=== PATIENT | female | born 1975 | race Caucasian/White ===

== ENCOUNTER 2023-11-24 20:25 | Outpatient (REF) | payer OTHER, SELFPAY ==
[2023-11-27 14:11] LABS: Age Gdln ACOG Testing Note (.); HPV Aptima Negative (Negative); IGP, Aptima HPV, rfx 16/18,45 Note (.)
== END 2023-11-24 20:26 | disposition home or self-care (01) ==
LOC: LAB 20:25
PROVIDERS: Visit Provider Obstetrics & Gynecology
DX: Z01.419 Encounter for gynecological examination (general) (routine) without abnormal findings (principal)
CPT/HCPCS: 87624; G0145

== ENCOUNTER 2023-12-09 15:21 | Outpatient (OUT) | payer OTHER, SELFPAY ==
--- NOTE | 2023-12-09 15:23 | MM_ITS ---
Patient Name: BAL HUMMEL MR#: [id number] : 1975 Exam Date: 12/09/2023 Ordering Doctor: DR Santo Soler . RADIOLOGY REPORT PROCEDURE: MM TOMOSYNTHESIS SCREENING BI COMPARISON: MG MAMM SCREEN TALAT W CAD, 03/15/2020. MG MAMM TALAT DIAG W CAD, 08/30/2016. INDICATIONS: screening Calculator Name NCI Breast Cancer Risk Assessment Tool 5 Year Breast Cancer Risk 0.60% Lifetime Breast Cancer Risk 7.00% Personal Breast Cancer No Personal Ovarian Cancer No Treatments None Family Cancers Mother with colon cancer at age 66; Father with prostate cancer at age 69. LOCATION: [facility] BREAST COMPOSITION: Extremely dense, which lowers the sensitivity of mammography. FINDINGS: DIAGNOSTIC CATEGORY 2--BENIGN FINDING. NO CHANGE FROM COMPARISON. Scattered benign-appearing nodules are present. Scattered benign-appearing calcifications are present. Scattered benign-appearing lymph nodes are present. RIGHT BREAST: No significant suspicious finding. LEFT BREAST: No significant suspicious finding. RECOMMENDATIONS: ROUTINE MAMMOGRAM AND CLINICAL EVALUATION IN 12 MONTHS. PLEASE NOTE: A NORMAL MAMMOGRAM DOES NOT EXCLUDE THE POSSIBILITY OF BREAST CANCER. A CLINICALLY SUSPICIOUS PALPABLE LUMP SHOULD BE BIOPSIED. Dictated by: Handy Winkler MD on 12/10/2023 at 12:45 Approved by: Handy Winkler MD on 12/10/2023 at 12:46
--- OUTSIDE RECORDS SUMMARY | 2023-12-09 15:24 | XMS_ITS | CCD ---
Author Name Unknown Address [address] [place] [address] Organization [facility] Care Team Providers Care Compensator Name Role Phone CARLOS ., DR MEZA Admitting Unavailabl e CARLOS ., DR MEZA Attending Unavaildavid GALVAN, DR KAT Hazel Primary Care Unavailable KARASIFarzad ., DR MEZA Consulting Unavailabl e NORTH, DR WILBERTO Starr Consulting Unavailable KARSAGAR ., DR MEZA Admitting Unavailabl e CARLOS ., DR MEZA Attending Unavaildavid GALVAN, DR KAT Hazel Primary Care Unavailable KARASIK ., DR MEZA Consulting Unavailabl e NGA AGUILAR Attending Unavailable Allergies Allergy Classification Reported Allergen(s) Allergy Type Date of Onset Reaction(s) Facility (1 source) Acetaminophen / HYDROcodone Drug Allergy 09-05-2021 [facility] (1 source) Acetaminophen / oxyCODONE Drug Allergy 09-05-2021 [facility] (1 source) Amoxicillin Drug Allergy 06-29-2021 [facility] Problems Active Problems Problem Classification Problem Date Documented Date Episodic/Chronic Immunizations and screening for infectious disease (1 source) Encounter for screening for human papillomavirus (HPV); Translations: [ENC SCREENING HUMAN PAPILLOMAVIRUS] Onset: 11-14-2022 Episodic Other screening for suspected conditions (not mental disorders or infectious disease) (4 sources) Encounter for screening for malignant neoplasm of cervix; Translations: [ENC SCREENING MALIG NEOPLASM CERV] Onset: 11-08-2022 Episodic Past or Other Problems Problem Classification Problem Date Documented Da te Episodic/Chronic Abdominal pain (4 sources) Right lower quadrant pain; Translations: [RIGHT LOWER QUADRANT PAIN] Onset: 07-29-2022 Episodic Ovarian cyst (1 source) Unspecified ovarian cyst, right side; Translations: [UNSPECIFIED OVARIAN CYST RIGHT SIDE] Onset: 07-31-2022 Episodic Residual codes; unclassified (1 source) Acquired absence of both cervix and uterus; Translations: [ACQUIRED ABSENCE BOTH CERVIX AND UTERUS] Onset: 07-31-2022 Episodic Results Test Name Value Interpretation Reference Range Facil ity PAP ACOG PANEL 2: 30 to 65on 11-15-2022 . . Normal [facility] Comment on above: Result Comment: Perf ormed at: [facility] Performed By: #### [id number] #### [facility] [address] [address] [address] Kev Weems Age Gdln ACOG Testing 30-65 Normal [facility] Comment on above: Performed By: #### [id number] #### [facility] [address] [address] [address] Kev Weems DIAGNOSIS: Comment Normal [facility] Comment on above: Result Comment: NEGA TIVE FOR INTRAEPITHELIAL LESION OR MALIGNANCY. Performed at: [facility] Performed By: #### [id number] #### [facility] [address] [address] [address] Kev Weems HPV Aptima Negative Normal Negative [facility] Comment on above: Result Comment: This nucleic acid amplification test detects fourteen high-risk HPV types (16,18,31,33,35,39,45,51,52,56,58,59,66,68) without differentiation. Performed at: =G Performed By: #### [id number] #### [facility] [address] [address] [address] Kev Weems HPV Genotype Reflex Comment Normal [facility] Comment on above: Result Comment: Crit eria not met, HPV Genotype not performed. Performed at: [facility] Performed By: #### [id number] #### [facility] [address] [address] [address] Kev Weems Methodology: Comment Normal [facility] Comment on above: Result Comment: This liquid based ThinPrep(R) pap test was screened with the use of an image guided system. Performed at: [facility] Performed By: #### [id number] #### [facility] [address] [place] [address] Dr. Kev Weems Note: Comment Normal [facility] Comment on above: Result Comment: The Pap smear is a screening test designed to aid in the detection of premalignant and malignant conditions of the uterine cervix. It is not a diagnostic procedure and should not be used as the sole means of detecting cervical cancer. Both false-positive and false-negative reports do occur. . Performed at: [facility] Performed By: #### [id number] #### [facility] [address] [place] [address] Dr. Kev Weems Performed by: Comment Normal [facility] Comment on above: Result Comment: John Rae, Cook Roast (ASCP) Performed at: [facility] Performed By: #### [id number] #### [facility] [address] [place] [address] Dr. Kev Weems Specimen adequacy: Comment [facility] Comment on above: Result Comment: Sati sfactory for evaluation. No endocervical component is identified. Performed at: [facility] Performed By: #### [id number] #### [facility] [address] [place] [address] Dr. Kev Weems US PELVIS AND TRANSVAGon US PELVIS AND TRANSVAG EXAMINATION: US PELVIS AND TRANSVAG HISTORY: Right lower quadrant pain COMPARISON: Ultrasound pelvis 06/29/2021 TECHNIQUE: Transabdominal and transvaginal sonographic examination. FINDINGS: UTERUS: Hysterectomy. RIGHT OVARY: Contains a complex 2.0 cm cyst. Duplex Doppler demonstrates normal waveform and flow; resistive index 0.4. Ovary size: 2.9 x 2.3 x 2.1 cm LEFT OVARY: Normal size and appearance. Duplex Doppler demonstrates normal waveform and flow; resistive index 0.4. Ovary size: 1.8 x 1.7 1.0 cm CUL-DE-SAC: Unremarkable. No significant free fluid. BLADDER: Unremarkable. OTHER: None. IMPRESSION: 1. Complex 2.0 cm right ovarian cyst. Follow-up ultrasound evaluation in 6 weeks is recommended to document regression. 2. Prior hysterectomy. No acute findings. Electronically authenticated by: WILBERTO KAT Date: 2022-07-30 07:08 Normal [facility] Encounters Encounter Date Encounter Type Care Provider Facility Start: 11-24-2023 End: 11-24-2023 ambulatory NGA AGUILAR Not Available Start: 11-08-2022 End: 11-08-[address] SUSANA GONZALEZ . Facility[facility] Start: 07-29-2022 End: 07-30-[address] SUSANA GONZALEZ . Facility[facility] Payers Date Payer Category Payer Unknown [id number] 1975 Unknown [id number] [id number] [id number] 1975 Unknown [id number] 2.16.84 [id number] 1975 Unknown [id number] [id number] [id number] 1957 Unknown [id number] Summary Purpose Family History No Family History Records FoundNo Family History Records Found Advance Directives No Advanced Directives Records FoundNo Advanced Directives Records Found Additional Source Comments INFORMATION SOURCE (unrecogn ized section and content) DATE CREATED AUTHOR 01/17/2023 [facility] DATE CREATED AUTHOR AUTHOR'S ORGANIZ ATMICHAEL 11/25/2023 [facility] FOR RECORDS PERTAINING TO PATIENTS WHO ARE OR HAVE BEEN ENROLLED IN A CHEMICAL DEPENDENCY/SUBSTANCEABUSE PROGRAM, SOME INFORMATION MAY BE OMITTED. This clinical summary was aggregated from multiple sources. Caution should be exercised in using it in the provision of clinical care. This summary normalizes information from multiple sources, and as a consequence, information in this document may materially change the coding, format and clinical context of patient data. In addition, data may be omitted in some cases. CLINICAL DECISIONS SHOULD BE BASED ON THE PRIMARY CLINICAL RECORDS. [employer] provides no warranty or guarantee of the accuracy or completeness of information in this document.
== END 2023-12-09 15:22 | disposition home or self-care (01) ==
LOC: MAMMO 15:21
PROVIDERS: Visit Provider Obstetrics & Gynecology
DX: Z12.31 Encounter for screening mammogram for malignant neoplasm of breast (principal); Z80.0 Family history of malignant neoplasm of digestive organs; Z80.42 Family history of malignant neoplasm of prostate
CPT/HCPCS: 77063; 77067

== ENCOUNTER 2024-12-01 19:08 | Outpatient (REF) | payer OTHER, SELFPAY ==
--- OUTSIDE RECORDS SUMMARY | 2024-12-01 19:13 | XMS_ITS | CCD ---
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 Name Role Phone CARLOS ., DR MEZA Admitting Unavailabl e KARASIK ., DR MEZA Attending Unavailabl e GALVAN, DR KAT Hazel Primary Care Unavailable KARASIK ., DR MEZA Consulting Unavailabl e NORTH, DR WILBERTO Starr Consulting Unavailable KARASIK ., DR MEZA Admitting Unavailabl e KARASIK ., DR MEZA Attending Unavailabl e COLE, DR KAT Hazel Primary Care Unavailable KARASIK ., DR MEZA Consulting UnavailNGA Finch Attending Unavailable Crow Blackwell MD Primary Care Provider CROW BLACKWELL Attending Unavailable CROW BLACKWELL Referring Unavailable CROW BLACKWELL Primary Care Unavailable CROW BLACKWELL Attending Unavailable CROW BLACKWELL Referring Unavailable CROW BLACKWELL Primary Care Unavailable CROW BLACKWELL Referring Unavailable CROW BLACKWELL Primary Care Unavailable KI AVILES Attending Unavailable CROW BLACKWELL Referring Unavailable CROW BLACKWELL Primary Care Unavailable CROW BLACKWELL Referring Unavailable CROW BLACKWELL Primary Care Unavailable Allergies Allergy Classification Reported Allergen(s) Allergy Type Date of Onset Reaction(s) Facility (1 source) Acetaminophen / HYDROcodone Drug Allergy 09-05-2021 [facility] (1 source) Acetaminophen / oxyCODONE Drug Allergy 09-05-2021 [facility] (3 sources) Amoxicillin; Translations: [AMOXICILLIN] Drug Allergy 12-21-2018 [facility] (4 sources) Amoxicillin Drug Allergy 12-21-2018 [facility] (5 sources) Penicillin G; Translations: [PENICILLIN G] Drug Allergy 11-20-2023 [facility] Medications Current Medications Medication Drug Class(es) Dates Sig (Normalized) Sig (Original) acetaminophen 500 mg oral tablet (4 sources) take 2 tablets by mouth every six hours as needed for pain acetaminophen (TYLENOL) 500 mg tablet Take 2 tablets (1,000 mg total) by mouth every 6 (six) hours as needed for pain. Active azithromycin 250 mg oral tablet (1 source) Macrolide Antimicrobial Start: 08-30-2024 End: 09-03-2024 azithromycin (ZITHROMAX) 250 mg tablet Take 2 tablets the first day, then 1 tablet daily for 4 days. 6 tablet 08/30/2024 09/03/2024 Active estrogens, conjugated (correction) 0.625 mg oral tablet (4 sources) Estrogen Start: 12-08-2022 take 1 tablet by mouth in the morning PREMARIN 0.625 mg tablet Take 1 tablet (0.625 mg total) by mouth in the morning. 12/08/2022 Active ibuprofen 200 mg oral tablet (4 sources) Nonsteroidal Anti-inflammatory Drug take 4 tablets by mouth every six hours as needed for pain ibuprofen (ADVIL,MOTRIN) 200 mg tablet Take 4 tablets (800 mg total) by mouth every 6 (six) hours as needed for pain. Active LORazepam 1 mg oral tablet (5 sources) Benzodiazepine Start: 03-15-2024 End: 11-29-2024 take 1 tablet by mouth twice daily as needed for anxiety LORazepam (ATIVAN) 1 mg tablet Indications: Anxiety Take 1 tablet (1 mg total) by mouth 2 (two) times a day as needed for anxiety. 6 tablet 11/29/2024 Active ondansetron 4 mg disintegrating oral tablet (3 sources) Serotonin-3 Receptor Antagonist Start: 11-29-2024 take 1 tablet by mouth every eight hours as needed for nausea and vomiting ondansetron ODT (ZOFRAN ODT) 4 mg disintegrating tablet Dissolve 1 tablet (4 mg total) on tongue every 8 (eight) hours as needed for nausea or vomiting. 10 tablet 11/29/2024 Active Start: 03-15-2024 End: 11-04-2024 ondansetron ODT (ZOFRAN ODT) 4 mg disintegrating tablet Indications: History of motion sickness Dissolve 1 tablet (4 mg total) on tongue every 8 (eight) hours as needed for nausea or vomiting. 10 tablet 03/15/2024 11/04/2024 Discontinued 72 hr scopolamine 0.0139 mg/hr transdermal system (3 sources) Anticholinergic Start: 11-29-2024 apply 1 dose transdermal route once daily scopolamine (TRANSDERM-SCOP) 1 mg/[address] 1 patch on the skin every third day. 4 patch 1 11/29/2024 Active Start: 03-15-2024 End: 11-04-2024 apply 1 dose transdermal route once daily scopolamine (TRANSDERM-SCOP) 1 mg/3 days Indications: History of motion sickness Place 1 patch on the skin every third day. 4 patch 03/15/2024 11/04/2024 Discontinued Problems Active Problems Problem Classification Problem Date Documented Date Episodic/Chronic Anxiety disorders (1 source) Anxiety; Translations: [Anxiety disorder, unspecified] 11-29-2024 Chronic Immunizations and screening for infectious disease (1 source) Encounter for screening for human papillomavirus (HPV); Translations: [ENC SCREENING HUMAN PAPILLOMAVIRUS] Onset: 11-14-2022 Episodic Other nervous system disorders (2 sources) Other chronic pain; Translations: [Other chronic pain] Onset: 11-04-2024 Chronic Other screening for suspected conditions (not mental disorders or infectious disease) (4 sources) Encounter for screening for malignant neoplasm of cervix; Translations: [ENC SCREENING MALIG NEOPLASM CERV] Onset: 11-08-2022 Episodic Spondylosis; intervertebral disc disorders; other back problems (15 sources) Cervical spondylosis without myelopathy; Translations: [Spondylosis without myelopathy or radiculopathy, cervical region] Onset: 12-21-2018 12-15-2019 Chronic Spondylosis; intervertebral disc disorders; other back problems (8 sources) Chronic low back pain; Translations: [Lumbago with sciatica, right side] Onset: 08-06-2024 11-04-2024 Episodic Unclassified (1 source) discuss anxiety and motion sickness meds Onset: 03-15-2024 Past or Other Problems Problem Classification Problem Date Documented Date Episodic/Chronic Abdominal pain (4 sources) Right lower quadrant pain; Translations: [RIGHT LOWER QUADRANT PAIN] Onset: 07-29-2022 Episodic Mood disorders (4 sources) Mood disorders Onset: 06-05-2021 06-05-2021 Other female genital disorders (4 sources) Vaginal odor; Translations: [Other specified noninflammatory disorders of vagina] Onset: 11-08-2020 Resolved: 10-16-2023 10-16-2023 Episodic Ovarian cyst (1 source) Unspecified ovarian cyst, right side; Translations: [UNSPECIFIED OVARIAN CYST RIGHT SIDE] Onset: 07-31-2022 Episodic Residual codes; unclassified (1 source) Acquired absence of both cervix and uterus; Translations: [ACQUIRED ABSENCE BOTH CERVIX AND UTERUS] Onset: 07-31-2022 Episodic Results Test Name Value Interpretation Reference Range Facil ity XR SPINE LUMBAR 2 OR 3 VWSon 08-08-2024 XR SPINE LUMBAR 2 OR 3 VWS XR SPINE LUMBAR 2 OR 3 VWS XR SPINE LUMBAR 2 OR 3 VWS INDICATION: Chronic low back pain post fall COMPARISON: CT abdomen and pelvis 05/28/2013 FINDINGS: 3 views of the lumbar spine demonstrate 5 lumbar-type vertebrae. Subtle levoconvex curvature of the thoracolumbar spine, favored positional. Otherwise, vertebral body heights and alignment maintained, noting patient rotation. Intervertebral disc spaces are well-maintained. Facet arthropathy L5-S1. IMPRESSION: * No acute osseous abnormality. * Mild multilevel degenerative disc disease. Approved by Resident Eugenio Swanson DO on 08/08/2024 7:50 AM I, Theodore Ndiaye MD have personally reviewed the image(s) and agree with and/or edited the report Finalized by Theodore Ndiaye MD on 08/08/2024 7:57 AM Normal [facility] PAP ACOG PANEL 2: 30 to 65on 11-15-2022 . . Normal [facility] Comment on above: Result Comment: Perf ormed at: [facility] Performed By: #### [id number] #### [facility] [address] [address] [address] Kev Weems Age Gdln ACOG Testing 30-65 Normal [facility] Comment on above: Performed By: #### [id number] #### [facility] [address] [address] [address] Kev Weems DIAGNOSIS: Comment Normal [facility] Comment on above: Result Comment: NEGA TIVE FOR INTRAEPITHELIAL LESION OR MALIGNANCY. Performed at: [facility] Performed By: #### [id number] #### [facility] [address] [address] [address] Kev Weems HPV Aptima Negative Normal Negative [facility] Comment on above: Result Comment: This nucleic acid amplification test detects fourteen high-risk HPV types (16,18,31,33,35,39,45,51,52,56,58,59,66,68) without differentiation. Performed at: =G Performed By: #### [id number] #### [facility] [address] [address] [address] Kev Weems HPV Genotype Reflex Comment Normal [facility] Comment on above: Result Comment: Crit eria not met, HPV Genotype not performed. Performed at: [facility] Performed By: #### [id number] #### [facility] [address] [place] [address] Dr. Kev Weems Methodology: Comment Normal [facility] Comment on above: Result Comment: This liquid based ThinPrep(R) pap test was screened with the use of an image guided system. Performed at: [facility] Performed By: #### [id number] #### [facility] [address] [place] [address] Dr. Kev Weems Note: Comment Normal [facility] Comment on above: Result Comment: The Pap smear is a screening test designed to aid in the detection of premalignant and malignant conditions of the uterine cervix. It is not a diagnostic procedure and should not be used as the sole means of detecting cervical cancer. Both false-positive and false-negative reports do occur. . Performed at: [facility] Performed By: #### [id number] #### [facility] [address] [address] [address] Kev Weems Performed by: Comment Normal [facility] Comment on above: Result Comment: John Rae, Certified Registered Nurse Anesthetist (ASCP) Performed at: [facility] Performed By: #### [id number] #### [facility] [address] [place] [address] Dr. Kev Weems Specimen adequacy: Comment Normal [facility] Comment on above: Result Comment: Sati sfactory for evaluation. No endocervical component is identified. Performed at: [facility] Performed By: #### [id number] #### [facility] [address] [address] [address] Kev Weems US PELVIS AND TRANSVAGon [...] by: WILBERTO KAT Date: 2022-07-30 07:08 Normal [facility] Vital Signs Date Time Vital Sign Value Performing Clinician Joe stoner 11-17-2024 12:10-0500 Body height 147.3 cm Acsisff PA-C Work Phone: [employer] 11-17-2024 12:10-0500 Body mass index (BMI) [Ratio] 29.89 kg/m2 Acsisff PA-C Work Phone: [employer] 11-17-2024 12:10-0500 Body weight 64.86 kg Acsisff PA-C Work Phone: [employer] 11-17-2024 12:10-0500 Diastolic blood pressure 91 mm[Hg] Ki Acertivff PA-C Work Phone: [employer] 11-17-2024 12:10-0500 Heart rate 82 /min Acsisff PA-C Work Phone: [employer] 11-17-2024 12:10-0500 SaO2% (BldA) [Mass fraction] 98 % Ki Aviles PA-C Work Phone: [facility] [employer] [facility] 11-17-2024 12:10-0500 Systolic blood pressure 158 mm[Hg] Ki Aviles PA-C Work Phone: [facility] [employer] [facility] 11-04-2024 14:21-0500 Body mass index (BMI) [Ratio] 28.93 kg/m2 Crow Blackwell MD Work Phone: [facility] [employer] [facility] 11-04-2024 14:21-0500 Body weight 63.32 kg Crow Blackwell MD Work Phone: [facility] [employer] [facility] 11-04-2024 14:21-0500 Diastolic blood pressure 81 mm[Hg] Crow Blackwell MD Work Phone: [facility] 11-04-2024 14:21-0500 Heart rate 68 /min Crow Blackwell MD Work Phone: [facility] 11-04-2024 14:21-0500 Systolic blood pressure 128 mm[Hg] Crow Blackwell MD Work Phone: [facility] Encounters Encounter Date Encounter Type Care Provider Facility Start: 11-29-2024 End: 11-29-2024 Telephone encounter Francoise Javad LEI [facility] Start: 11-17-2024 ambulatory CROW BLACKWELL [facility] Start: 11-17-2024 End: 11-17-2024 Office outpatient new 45 minutes Crow Blackwell MD Work Phone: [facility] Comment on above: Lumbar spondylosis ( Primary Dx); Cervical spondylosis without myelopathy Start: 11-17-2024 End: 11-17-2024 ambulatory KI AVILES [facility] Start: 11-04-2024 End: 11-04-2024 Office outpatient visit 15 minutes [facility] MD [facility] Comment on above: Cervical spondylosis without myelopathy (Primary Dx); Chronic right-sided low back pain with right-sided sciatica Start: 11-04-2024 End: 11-04-2024 ambulatory [facility] Start: 08-30-2024 End: 08-30-2024 Telephone encounter Crow Blackwell MD Work Phone: [facility] Start: 08-06-2024 End: 08-06-2024 ambulatory [facility] Start: 03-15-2024 End: 03-15-2024 ambulatory [facility] Start: 11-24-2023 End: 11-24-2023 ambulatory NGA LAUREN Not Available Start: 11-08-2022 End: 11-08-[address] SUSANA GONZALEZ . Facility: Start: 07-29-2022 End: 07-30-[address] SUSANA GONZALEZ . Facility: Procedures Date Procedure Procedure Detail Performing Clinician Start: 03-15-2020 Mammography Crow Walton and Work Phone: Plan of Treatment Date Care Activity Detail Author Start: 11-17-2025 Adult BMI Screening Adult BMI Screen ing [facility] Start: 11-17-2025 Tobacco Screening Tobacco Screening [facility] Start: 03-15-2025 Adult BMI Screening Adult BMI Screen ing [facility] Start: 03-15-2025 Tobacco Screening Tobacco Screening [facility] Start: 12-22-2024 End: 12-22-2024 Patient encounter procedure 12/22/2024 2:45 PM EST Office Visit [facility] [address] [place] [address] Ki Aviles, PAHyun [address] [place] [address] [facility] Start: 12-03-2024 End: 12-03-2024 Admission to same day surgery center [facility] Comment on above: INJECTION BLOCK NERV E MEDIAL BRANCH Bilateral L 4/5,5/1 [47117 (CPT )] INJECTION BLOCK NERV E MEDIAL BRANCH Bilat L 4/5, 5/1 [75687 (CPT )] Start: 12-03-2024 End: 12-03-2024 Njx dx/ther agt pvrt facet jt lmbr/sac 1 level [facility] Start: 12-03-2024 Subsequent hospital visit by physician [facility] Start: 12-03-2024 End: 12-03-2024 Patient encounter procedure 12/03/2024 10:05 AM EST Appointment [facility] [address] [place] [id number] Xavi Camilo MD [address] [place], [place] [id number] [facility] Start: 11-29-2024 End: 11-29-2024 Patient encounter procedure 11/29/2024 4:30 PM EST Appointment [facility] [address] [place] [address] Cervical spondylosis without myelopathy; Chronic right-sided low back pain with right-sided sciatica [facility] Comment on above: Cervical spondylosis without myelopathy; Chronic right-sided low back pain with right-sided sciatica Start: 07-11-2024 COVID-19 Vaccine ( season) COVID-19 Vaccine ( season) [facility] Start: 07-11-2024 COVID-19 Vaccine ( season) COVID-19 Vaccine ( season) [facility] Start: 07-11-2024 Influenza vaccination Influenza Vacc ine [facility] Start: 03-15-2021 Screening for malign ant neoplasm of breast Mammogram [facility] Start: 1996 DTaP,Tdap and Td Vaccines (1 - Tdap) DTaP,Tdap and Td Vaccines (1 - Tdap) [facility] Start: 1995 Adult BMI Follow Up Plan Adult BMI Follow Up Plan [facility] Start: 1989 Depression Screening Depression Scre ening [facility] Immunizations Immunization Date Immunization Notes Care Provider Fa abner 07-24-2023 influenza virus vaccine, unspecified formulation Crow Blackwell MD Work Phone: [facility] 02-28-2021 COVID-19, mRNA, LNP- S, PF, 100mcg/0.5mL Dose Crow Blackwell MD Work Phone: [facility] 01-31-2021 COVID-19, mRNA, LNP- S, PF, 100mcg/0.5mL Dose Crow Blackwell MD Work Phone: [facility] 07-23-2020 influenza virus vaccine, unspecified formulation Crow Blackwell MD Work Phone: [facility] Payers Date Payer Category Payer Managed Care Other (unspecified) [employer] [id number] 2020 Unknown [id number] 1977 Unknown [id number] 1977 Unknown [id number] 1977 Unknown [id number] 1977 Unknown [id number] 1977 Unknown [id number] 1977 Unknown [id number] 1977 Unknown [id number] 1977 Unknown [id number] 1959 Unknown [id number] Social History Date Type Detail Facility Start: 12-20-2022 Tobacco smoking status [facility] Never smoked tobacco [facility] Start: 12-20-2022 Tobacco use and exposure Smokeless tobacco non-user [facility] Start: 03-15-2024 End: 11-04-2024 Alcoholic beverage intake Current non-drinker of alcohol (finding) [facility] Start: 06-05-2021 End: 11-17-2024 History of Social function [facility] Start: 06-05-2021 End: 11-17-2024 Social connection and isolation panel [facility] Do you belong to any clubs or organizations such as congregational groups, unions, fraternal or athletic groups, or school groups? No [facility] Are you now , , , , never or living with a partner? Living with partner [facility] How often to you hav e a drink containing alcohol? Never [facility] How many standard dr inks containing alcohol do you have on a typical day? 1 or 2 [facility] How hard is it for y ou to pay for the very basics like food, housing, medical care, and heating Not hard at all [facility] Do you feel stress - tense, restless, nervous, or anxious, or unable to sleep at night because your mind is troubled all the time - these days [OSQ] Only a little [facility] Start: 06-05-2021 Education 15 [facility] Start: 1975 Sex assigned at Female [facility] Start: 06-15-2015 Sex Female (finding) [facility] Start: 09-07-2018 Gender identity Identifies as female gender (finding) [facility] Start: 01-15-2020 Sexual orientation Heterosexual (finding) [facility] Start: 11-17-2024 Alcoholic beverage intake Current drinker of alcohol (finding) [facility] Start: 11-17-2024 Alcohol Comment occasional [facility] Clinical Notes 08-30-2024 to 11-29-2024 Telephone Encounter - QUIQUE Lunsford - 11/29/2024 11:34 AM ESTTelephone Encounter - Francoise Farnsworth Ilir - 11/29/2024 11:34 AM Gautam Aviles PA-C - 11/17/2024 12:00 PM ESTPatient Instructions Note Date & Type Note Facility 11-29-2024 Miscellaneous Notes Patient called stating she is going to be going on vacation and taking a cruise. She is wanting to know if you could send a prescription for the lorazepam, zofran, and patch for motion sickness. She said you did this for her back in March. Please advise. documented in this encounter [facility] 11-29-2024 Telephone encounter Note Patient called stating she is going to be going on vacation and taking a cruise. She is wanting to know if you could send a prescription for the lorazepam, zofran, and patch for motion sickness. She said you did this for her back in March. Please advise. [facility] 11-17-2024 History of Presen t illness Narrative [facility] [address] [place] [address] Patient: Lucila Reilly Sex: female : 1975 Age: 48 y.o. PCP: Crow Blackwell MD 11/17/2024 Lucila Reilly is here for a(n) initial consultation. Date of onset of pain: Back-Dec 2023, Neck-2018, pain has lasted greater than 3 months. Chief Complaint Patient presents with Back Pain Neck Pain HPI: Back Pain This is a chronic problem. The current episode started more than 1 month ago (Dec 2023). The problem occurs constantly. The problem has been gradually worsening since onset. The pain is present in the lumbar spine, gluteal, sacro-iliac and thoracic spine (Rt side). The quality of the pain is described as aching, burning, cramping, shooting and stabbing. The pain does not radiate. The pain is at a severity of 7/10. The pain is moderate. The pain is Worse during the day. The symptoms are aggravated by bending, twisting, standing, position and sitting. Stiffness is present In the morning. Associated symptoms include headaches (x2 weekly), numbness (RLE, BUE), tingling (RLE, BUE) and weakness (RLE). Pertinent negatives include no chest pain or fever. She has tried chiropractic manipulation, home exercises, heat, NSAIDs, walking and ice (Tylenol, Salonpas) for the symptoms. The treatment provided mild relief. Neck Pain This is a chronic problem. The current episode started more than 1 year ago (2018). The problem occurs 2 to 4 times per day. The problem has been gradually worsening. The pain is associated with nothing. The pain is present in the left side, midline and right side (Severino shoulder). The quality of the pain is described as aching and burning. The pain is at a severity of 4/10. The pain is moderate. The symptoms are aggravated by bending, twisting, sneezing and coughing (sitting, stairs, lifting, leaning, pushing, pulling, transitioning). The pain is Worse during the day. Stiffness is present In the morning. Associated symptoms include headaches (x2 weekly), numbness (RLE, BUE), tingling (RLE, BUE) and weakness (RLE). Pertinent negatives include no chest pain or fever. She has tried home exercises, heat, ice, NSAIDs, acetaminophen and chiropractic manipulation (Prev PT, Prev Inj, standing, walking) for the symptoms. The treatment provided moderate relief. The effect of pain on patient's ADLS: Moderate Impairment. Past Medical History: Diagnosis Date Abnormal Pap smear of cervix Allergic Amoxicilin Anxiety GERD (gastroesophageal reflux disease) Low back pain Nausea and vomiting after administration of anesthetic agent family members as well Neck pain Varicella 1979 Past Surgical History: Procedure Laterality Date COLPOSCOPY HYSTERECTOMY 10-04-21 INDUCED 3 INJECTION MEDIAL BRANCH NERVE BLOCK Left C 3/4, 4/5, 5/6 Left 2019 Performed by Xavi Camilo MD at [facility] LEFT C3/4, 4/5, 5/6 MEDIAL BRANCH NERVE BLOCK- 1 OF 2 Left 12/25/2018 Performed by Xavi Camilo MD at [facility] LEFT C3/4, 4/5, 5/6 MEDIAL BRANCH NERVE BLOCK- 2 OF 2 Left 01/22/2019 Performed by Xavi Camilo MD at [facility] Allergies Allergen Reactions Penicillin G Amoxicillin Hives Family History Problem Relation Age of Onset Coronary artery disease Mother Diabetes Mother Cancer Mother stomach Heart disease Mother Cancer Father Coronary artery disease Father Hypertension Father Prostate cancer Father Heart disease Father Breast cancer Maternal Aunt Cancer Paternal Aunt uterine Ovarian cancer Paternal Aunt Social History Socioeconomic History Marital status: Spouse name: Not on file Number of children: Not on file Years of education: Not on file Highest education level: Associate degree: occupational, technical, or vocational program Occupational History Not on file Tobacco Use Smoking status: Never Smokeless tobacco: Never Substance and Sexual Activity Alcohol use: Yes Comment: occasional Drug use: Yes Types: Marijuana Sexual activity: Yes Partners: Male control/protection: None Other Topics Concern Not on file Social History Narrative Not on file Social Drivers of Health Financial Resource Strain: Low Risk (03/13/2024) Overall Financial Resource Strain (CARDIA) Difficulty of Paying Living Expenses: Not hard at all Food Insecurity: No Food Insecurity (11/17/2024) Hunger Screening Food Insecurity - Worry: Never True Food Insecurity - Inability: Never True Transportation Needs: No Transportation Needs (03/13/2024) PRAPARE - Transportation Lack of Transportation (Medical): No Lack of Transportation (Non-Medical): No Physical Activity: Insufficiently Active (06/05/2021) Exercise Vital Sign Days of Exercise per Week: 4 days Minutes of Exercise per Session: 30 min Stress: No Stress Concern Present (06/05/2021) [place] [facility] - Occupational Stress Questionnaire Feeling of Stress : Only a little Social Connections: Moderately Integrated (06/05/2021) Social Connection and Isolation Panel [NHANES] Frequency of Communication with Friends and Family: Three times a week Frequency of Social Gatherings with Friends and Family: Once a week Attends Anabaptist Services: 1 to 4 times per year Active Member of Clubs or Organizations: No Attends Club or Organization Meetings: Never Marital Status: Living with partner Interpersonal Safety: Not At Risk (06/05/2021) Humiliation, Afraid, Rape, and Kick questionnaire Fear of Current or Ex-Partner: No Emotionally Abused: No Physically Abused: No Sexually Abused: No Housing Instability: Low Risk (03/13/2024) Housing Instability Housing Instability: No Review of Systems Constitutional: Negative for chills and fever. HENT: Negative. Eyes: Negative. Respiratory: Negative for cough and shortness of breath. Cardiovascular: Negative for chest pain. Gastrointestinal: Positive for constipation. Endocrine: Negative. Genitourinary: Negative. Musculoskeletal: Positive for back pain and neck pain. Skin: Negative. Allergic/Immunologic: Negative. Neurological: Positive for tingling (RLE, BUE), weakness (RLE), numbness (RLE, BUE) and headaches (x2 weekly). Hematological: Negative. Psychiatric/Behavioral: Negative. Vital Signs: BP (!) 158/91 (BP Site: Left Arm) Pulse 82 Ht 147.3 cm (4' 10 ) Wt 64.9 kg (143 lb) LMP 06/10/2021 SpO2 98% BMI 29.89 kg/m Physical Exam: GENERAL - Healthy patient that appears stated age. HEENT - Normocephalic / Atraumatic, Extraoccular movements intact, trachea midline, thyroid within normal limits. CV - pulse regular, Warm extremities with appropriate color of nailbeds. RESP - No obvious wheezing, No Shortness of Breath, No overexertion response to exam maneuvers. COORDINATION - remains intact. PSYCH - Alert and Oriented x4, Attentive and appropriate, constitutionally normal, displays normal mood and affect per situation, answered questions appropriately during examination, demonstrated appropriate attention during discussion, demonstrated appropriate cognitive reasoning and understanding of the medical condition by asking appropriate questions regarding the diagnosis and risks/benefits/alternatives of treatment modalities. No obvious deficits in memory, reasoning, or intellect. Lumbar: SKIN - No rashes or bruising in the area of the patient s pain. LYMPH NODES - demonstrate no obvious enlargement. EXTREMITIES - Lower extremities are warm, with minimal edema and palpable pulses. Tenderness to palpation noted in the lumbar spine and paraspinal musculature. Pain is elicited with flexion, extension, and lateral rotation of the lumbar spine. Range of motion is diminished with these motions due to pain. Facet palpation is noted to be painful and facet loading maneuvers elicit pain that is concordant with the patient s normal pain complaints. Some muscle spasm is noted in the overlying musculature. STRENGTH - noted to be 5 out of 5 all muscle groups bilateral lower extremities including muscles involving hip flexion and abduction, knee flexion and extension, as well as foot dorsiflexion and plantarflexion. No notable atrophy, fasciculations or spasm. SENSORY - No notable sensory deficits in the bilateral lower extremities to touch or pinprick in all dermatomal distributions. Straight Leg Raise is negative bilaterally. Gait is normal. Assessment/Treatment Plan: Lucila was seen today for back pain and neck pain. Diagnoses and all orders for this visit: Lumbar spondylosis - Case request operating room: INJECTION BLOCK NERVE MEDIAL BRANCH Bilateral L 4/5,5/1 Cervical spondylosis without myelopathy - [facility] - [place], [place] Continue Physical therapy Bilateral L4/5, 5/1 Facet Injection/Medial Branch Block - under fluoroscopy It is hopeful that the described procedure will provide symptomatic pain relief. It is felt to be medically necessary noting that the patient has tried and failed more conservative modalities of therapy and this is the next most appropriate step. The procedure was described in detail to the patient as well as the potential benefits of pain reduction alongside risks of the procedure and alternatives. Risks were described as including, but not limited to bleeding, infection, nerve damage, spinal cord injury, paralysis, stroke, dural puncture headache, and medication reaction. The patient expressed understanding regarding the risks and benefits and wishes to proceed. Diagnostic facet injections and medial branch blocks should provide information to confirm that the noted facet arthropathy is the patient s most significant pain generator. If this provides significant but only temporary pain relief, the patient may in the future be a candidate for radiofrequency denervation of the facet joints to provide pain relief for approximately 1 year. Follow up 2 weeks after procedure The medications I have prescribed have been reviewed for medication interactions/contraindications and/or for upcoming procedures: continue current medication regimen without any changes. DISCUSSION: Treatment options discussed with patient and all questions answered to patient's satisfaction. Discussed the rules and regulations surrounding prescription of opioids and compliance at length. Failure to follow the rules and regulation will result in tapering and discontinuation of medications if applicable. Prescribed medication that requires intensive monitoring for toxicity We do not currently prescribe any controlled substance from this practice. Treatment plans discussed but not opted for at this time: Repeat lumba medial branch block injection and RFA. Patient would like to proceed with the current outlined treatment plan before moving forward with any other options. The spine model was demonstrated and MRI was reviewed and used to explain the condition. OARRS: Reviewed. Scribe Statement: Francoise Flores CNA, scribed for and in the presence of KI AVILES PA-C who performed the above service. Provider Statement: KI Flores PA-C, personally performed the services described in the documentation, as scribed by Francoise Alberto CNA in my presence, and it is both accurate and complete. Francoise Alberto CNA 11/17/24 1246 Ki Aviles PA-C 11/17/24 1248 documented in this encounter [facility] 11-17-2024 Instructions Francoise Alberto CNA - 11/17/2024 12:00 PM EST Facet Injection / Medial Branch Block (MBB) / Sacroiliac (SI) Joint Injection / Cluneal NB A facet injection and sacroiliac joint injection are injections of local anesthetic and steroid into a joint in the spine. A medial branch block is similar, but the medication is placed outside the joint space near the nerve that supplies the joint called the medial branch (steroid may or may not be used). You may require multiple injections depending upon how many joints are involved. How Long Will This Procedure Last? The extent and duration of pain relief may depend on the amount of inflammation and how many areas are involved. Other coexisting factors may be responsible for your pain. If your pain goes away for a short time, but then returns, you may be a candidate for radiofrequency ablation (RFA). Activity Be active. Attempt activities and movements that typically cause pain to see if it feels better while doing them. We will give you a pain diary. Please fill this out as directed by your nurse in pre-op. This will help your doctor determine the effectiveness of the injection, and how to proceed. Bring the pain diary with you to your follow-up appointment. Medications You should not take your pain medications for 4-6 hours before or after the injection in order to properly diagnose if the injection provides adequate relief. Resume your routine medications after your procedure. You may resume blood thinners per your regular schedule after the procedure. If you received sedation: If you received sedation for your procedure, you may feel sleepy or not yourself for several hours today. For the next 24 hours avoid activities that requires alertness or coordination. This includes: Driving or operating heavy machinery Using power tools Consuming alcohol Do not make important or complex decisions or sign legal documents in the next 24 hours. Other Instructions: If you feel severe pain at the injection site with swelling and redness, increased leg weakness, a fever of 101 or higher, headache (or worsening headache), changes in vision or urinary retention: Please call the office at , or have someone take you to the nearest emergency room. Tell the emergency room staff that you recently had a spine injection. A doctor must evaluate you for bleeding and injection complications. If you lose control over bowel, bladder, or legs: Go to the nearest emergency room. documented in this encounter [facility] 11-04-2024 History of Presen t illness Narrative Subjective Patient ID: Lucila Reilly is a 48 y.o. female. She has a history of cervical and lower back pain on a chronic basis. It has been worse lately and her usual home management is not controlling the symptoms. No specific injury but some of the activity with her work makes things worse. She does get some intermittent sciatica type pain, nothing continuous and no fixed motor deficit. No systemic symptoms. The following portions of the patient's history were reviewed and updated as appropriate: allergies, current medications, past medical history, past social history, past surgical history, and problem list. Review of Systems Objective Physical Exam Constitutional: General: She is not in acute distress. Comments: Gets around the room well. Cardiovascular: Rate and Rhythm: Normal rate. Pulmonary: Effort: Pulmonary effort is normal. Musculoskeletal: Comments: Straight leg raise is negative. No pain with percussion over the lumbar spine. Cervical paraspinal muscle tightness. Neurological: General: No focal deficit present. Mental Status: She is alert. Assessment/Plan She had some success with pain management in the past and would like to try that again. Will get PT evaluation as well. No activity restriction. Further pending her course. Diagnoses and all orders for this visit: Cervical spondylosis without myelopathy - [facility] - [place], [place]; Future - [facility] - [place], [place]; Future Chronic right-sided low back pain with right-sided sciatica - [facility] - [place], [place]; Future documented in this encounter [facility] 08-30-2024 Miscellaneous Notes Lucila says she has her normal sinus infection and is wondering if something can be called in for her. She said her at home covid test was negative. Please advise documented in this encounter [facility] 08-30-2024 Telephone encounter Note Lucila says she has her normal sinus infection and is wondering if something can be called in for her. She said her at home covid test was negative. Please advise [facility] Evaluation note Diagnosis Cervical spondylosis without myelopathy- Primary Chronic right-sided low back pain with right-sided sciatica [facility] Diagnosis Lumbar spondylosis- Primary Lumbosacral spondylosis without myelopathy Cervical spondylosis without myelopathy Lumbar spondylosis- Primary Lumbosacral spondylosis without myelopathy Lumbar spondylosis Lumbosacral spondylosis without myelopathy [facility] Diagnosis Lumbar spondylosis- Primary Lumbosacral spondylosis without myelopathy Cervical spondylosis without myelopathy Chronic right-sided low back pain with right-sided sciatica Anxiety Anxiety state, unspecified Lumbar spondylosis Lumbosacral spondylosis without myelopathy [facility] Summary Purpose Family History No Family History Records FoundNo Family History Records FoundNo Family History Records FoundNo Family History Records Found Advance Directives No Advanced Directives Records FoundNo Advanced Directives Records FoundNo Advanced Directives Records FoundNo Advanced Directives Records Found Additional Source Comments INFORMATION SOURCE (unrecogn ized section and content) DATE CREATED AUTHOR 01/17/2023 [facility] DATE CREATED AUTHOR AUTHOR'S ORGANIZ ATION 11/25/2023 [facility] EPIC DATE CREATED AUTHOR AUTHOR'S ORGANIZ ATION 11/05/2024 [facility] DATE CREATED AUTHOR AUTHOR'S ORGANIZ ATION 12/01/2024 [facility] Care Teams (unrecognized sec tion and content) Balance Wheel Screw Hole Tapper Relationship Specialty Start Date End Date Crow Blackwell MD [address] [place] [address], [address] [place] [address] PCP - General Pediatrics 04/09/17 Balance Wheel Screw Hole Tapper Relationship Specialty Start Date End Date Crow Blackwell MD [address] [place] [address], [address] [place] [address] PCP - General Pediatrics 04/09/17 Balance Wheel Screw Hole Tapper Relationship Specialty Start Date End Date Crow Blackwell MD [address] [place] [address], [address] [place] [address] PCP - General Pediatrics 04/09/17 Balance Wheel Screw Hole Tapper Relationship Specialty Start Date End Date Crow Blackwell MD [address] [place] [address], [address] [place], [place] [id number] PCP - General Pediatrics 04/09/17 Reason for Visit (unrecogniz ed section and content) Reason Comments Back Pain Low back and upper b ack now. possibly needs referral to pain management Reason Comments Back Pain Neck Pain Specialty Diagnoses / Procedures Referred By Contac t Referred To Contact Pain Medicine Diagnoses Cervical spondylosis without myelopathy Crow Blackwell MD [address] [place] [address], [address] [place] [address] Phone: tel: fax: [facility] [address] [place] [address] Phone: tel: fax: Referral ID Status Reason Start Date Expiration Date V isits Requested Visits Authorized [id number] Closed Specialty Services Required 11/04/2024 11/04/2025 1 1 FOR RECORDS PERTAINING TO PATIENTS WHO ARE [...] BE BASED ON THE PRIMARY CLINICAL RECORDS. [employer] [facility]. provides no warranty or guarantee of the accuracy or completeness of information in this document.
[2024-12-07 12:08] LABS: Age Gdln ACOG Testing Note (.); HPV Aptima Negative (Negative); IGP, Aptima HPV, rfx 16/18,45 Note (.)
== END 2024-12-01 19:09 | disposition home or self-care (01) ==
LOC: LAB 19:08
PROVIDERS: Visit Provider Obstetrics & Gynecology
DX: Z01.419 Encounter for gynecological examination (general) (routine) without abnormal findings (principal)
CPT/HCPCS: 87624; 88175

== ENCOUNTER 2025-05-30 09:23 | Outpatient (OUT) | payer OTHER, SELFPAY ==
--- OUTSIDE RECORDS SUMMARY | 2025-05-24 11:00 | XMS_ITS | Encounter Summary ---
Author Organization [facility] tem Address [id number] [address] [place] [address] Care Team Providers Care Wood Calker Name Role Phone Markie Tolbert MD Primary Care Provider Reason for Visit * Reason Comments Panic Attack Depression Encounter Details Date Type Department Care Team (Late st Contact Info) Description 05/24/2025 11:00 AM EDT [facility] [address] [place] [address] [address] [place] [address] Markie Tolbert MD [address] [place] [address], [address] [place] [address] Grief reaction (Primary Dx) Social History Tobacco Use Types Packs/Day Years Used Date Smoking Tobacco: Never Smokeless Tobacco: Never Alcohol Use Standard Drinks/Week Comments Yes 0 (1 standard drink = 0.6 oz pur e alcohol) occasional Social Connection and Isolation Panel [NHANES] A nswer Date Recorded In a typical week, how many times do you talk on the phone with family, friends, or neighbors? Three times a week 06/05/20 How often do you get togethe r with friends or relatives? Once a week 06/05/2021 How often do you attend chur ch or confucianism services? 1 to 4 times per year 06/05/2021 Do you belong to any clubs o r organizations such as bahai groups, unions, fraternal or athletic groups, or school groups? No 06/05/2021 How often do you attend meet ings of the clubs or organizations you belong to? Never 06/05/2021 Are you , , di vorced, , never , or living with a partner? Living with partner 06/05/2021 AUDIT-C Answer Date Recorded Q1: How often do you have a drink containing alc ohol? Never 06/05/2021 Q2: How many drinks containi ng alcohol do you have on a typical day when you are drinking? 1 or 2 06/05/2021 Q3: How often do you have six or more drinks on one occasion? Never 06/05/2021 Overall Financial Resource Strain (CARDIA) Answe r Date Recorded How hard is it for you to pa y for the very basics like food, housing, medical care, and heating? Not hard at all 03/13/2024 PHQ-2 Answer Date Recorded Total Score 8 05/24/2025 [facility] [place] [facility] - Occupational Stress Questionnaire Answer Date Recorded Do you feel stress - tense, restless, nervous, or anxious, or unable to sleep at night because your mind is troubled all the time - these days? Only a little 06/05/2021 Exercise Vital Sign Answer Date Recorde d On average, how many days pe r week do you engage in moderate to strenuous exercise (like a brisk walk)? 4 days 06/05/2021 On average, how many minutes do you engage in exercise at this level? 30 min 06/05/2021 PRAPARE - Transportation Answer Date Re corded In the past 12 months, has l ack of transportation kept you from medical appointments or from getting medications? No 02/2024 In the past 12 months, has l ack of transportation kept you from meetings, work, or from getting things needed for daily living? No 03/13/2024 Housing Instability Answer Date Recorde d Are you worried or concerned that in the next two months you may not have stable housing that you own, rent or stay in as a part of a household? No 03/13/2024 Childcare Answer Date Recorded Do problems getting child ca re make it difficult for you to work or study? No 06/05/2021 Employment Answer Date Recorded Do you need help finding a [facility] career center and/or a training program? No 06/05/2021 Hunger Screening Answer Date Recorded Within the past 12 months we worried whether our food would run out before we got money to buy more. Never True 05/24/2025 Within the past 12 months th e food we bought just didn't last and we didn't have money to get more. Never True 05/24/2025 Purpose - Life Answer Date Recorded I have a purpose and direction in my life. Agree 06/05/2021 Education Answer Date Recorded What is the highest level of school you have completed or the highest degree you have received? Associate degree: occupational, technical, or vocational program 06/05/2021 Comments No Sex and Gender Information Value Date Recorded Sex Assigned at Female 09/07/2018 4:51 PM EDT Legal Sex Female 11:36 AM EDT Gender Identity Female 09/07/2018 4:51 PM EDT Sexual Orientation Straight 01/15/2020 6: 41 PM EST documented as of this encounter Last Filed Vital Signs Vital Sign Reading Time Taken Comments Blood Pressure 128/84 05/24/2025 11:07 AM EDT Pulse 72 05/24/2025 11:07 AM EDT Temperature 36.7 C (98 F) 05/24/2025 11:07 AM EDT Respiratory Rate - - Oxygen Saturation 98% 05/24/2025 11: 07 AM EDT Inhaled Oxygen Concentration - - Weight 62.5 kg (137 lb 12.8 oz) 025 11:07 AM EDT Height 152.4 cm (5') 05/24/2025 11:07 AM EDT Body Mass Index 26.91 05/24/2025 11:07 AM EDT documented in this encounter Progress Notes * Markie Tolbert MD - 05/24/2025 11:00 AM EDT Subjective Patient ID: Lucila Reilly is a 49 y.o. female. Comes in with anxiety, difficulty sleeping, feeling emotional. This has affected her at work where she often feels that she might break down. 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 He in March. Since then she had 2 more family member deaths. She is working with her sister on some estate issues and some other siblings are having disagreements. She denies excessive alcohol. She is not suicidal. She does not like to take medication. She feels she just needs a little break from work in order to focus on her father's business affairs and on her own mental health, particularly the grief. The following portions of the patient's history were reviewed and updated as appropriate: allergies, current medications, past medical history, past social history, and problem list. Review of Systems Objective Physical Exam Constitutional: Comments: She appears well. She interacts appropriately. Tearful at times. No other physical exam done today. Assessment/Plan Reviewed with her. Coping mechanisms reviewed. She is going to be off work starting today with tentative return to work 06/13/2025. If she is not improving she may benefit from some medication. Diagnoses and all orders for this visit: Grief reaction documented in this encounter Plan of Treatment Upcoming Encounters Date Type Department Care Team (Late st Contact Info) Description 06/01/2025 1:15 PM EDT Office Visit [facility] [address] [place] [address] Lexie Aviles PA-C [address] [place], [place] [id number] documented as of this encounter Visit Diagnoses Diagnosis Grief reaction- Primary Adjustment disorder with depressed mood documented in this encounter Additional Health Concerns Assessment Noted Time PHQ-9 Depression Total Score: 8 05/24/20 25 11:04 AM EDT documented as of this encounter Care Teams Wood Calker Relationship Specialty Start Date End Date Markie Tolbert MD [address] [place] [address], [address] [place] [address] PCP - General Pediatrics 04/09/17 documented as of this encounter
--- NOTE | 2025-05-30 09:26 | MM_ITS ---
Patient Name: BAL HUMMEL MR#: [id number] : 1975 Exam Date: 05/30/2025 Ordering Doctor: DR NGA AGUILAR . RADIOLOGY REPORT PROCEDURE: MM TOMOSYNTHESIS SCREENING BI COMPARISON: MM TOMOSYNTHESIS SCREENING BI, 12/09/2023. MG MAMM SCREEN TALAT W CAD, 03/15/2020. MG MAMM TALAT DIAG W CAD, 08/30/2016. INDICATIONS: Screening Calculator Name NCI Breast Cancer Risk Assessment Tool 5 Year Breast Cancer Risk 0.60% Lifetime Breast Cancer Risk 6.80% Personal Breast Cancer No Personal Ovarian Cancer No Treatments None Family Cancers Mother with colon cancer at age 66; Father with prostate cancer at age 69. LOCATION: [facility] BREAST COMPOSITION: The breasts are heterogeneously dense, which may obscure small masses. FINDINGS: RIGHT BREAST: No significant suspicious finding. LEFT BREAST: No significant suspicious finding. DIAGNOSTIC CATEGORY 1--NEGATIVE. RECOMMENDATIONS: ROUTINE MAMMOGRAM AND CLINICAL EVALUATION IN 12 MONTHS. PLEASE NOTE: A NORMAL MAMMOGRAM DOES NOT EXCLUDE THE POSSIBILITY OF BREAST CANCER. A CLINICALLY SUSPICIOUS PALPABLE LUMP SHOULD BE BIOPSIED. Dictated by: Aron Sim MD on 05/30/2025 at 12:49 Approved by: Aron Sim MD on 05/30/2025 at 13:22
--- OUTSIDE RECORDS SUMMARY | 2025-05-30 09:26 | XMS_ITS | Encounter Summary ---
Author Organization [facility] tem Address [id number] [address] [place] [address] Care Team Providers Care Associate Entertainment Editor Name Role Phone Markie Tolbert MD Primary Care Provider Encounter Details Date Type Department Care Team (Latest Contact Info) Description 05/30/2025 Travel Social History Tobacco Use Types Packs/Day Years [...] week 06/05/2021 How often do you attend [facility] or lutheran services? 1 to 4 times per year 06/05/2021 Do you belong to any clubs o r organizations such as worship groups, unions, fraternal or athletic groups, or [...] Answer Date Recorded Total Score 8 05/24/2025 [facility] of Occupat ional [facility] - Occupational Stress Questionnaire Answer Date Recorded [...] Recorded Do you need help finding a [facility] career [facility] and/or a training program? No [...] PM EST documented as of this encounter Plan of Treatment Upcoming Encounters Date Type Department Care Team (Late st Contact Info) Description 06/01/2025 1:15 PM EDT Office Visit [facility] - [facility] [address] [place] [phone] Lexie Aviles PAZhannaC [address] [facility], 2nd [place] [address] documented as of this encounter Visit Diagnoses Not on filedocumented in this encounter Additional Health Concerns Assessment Noted Time PHQ-9 Depression Total Score: 8 05/24/20 25 11:04 AM EDT documented as of this encounter Care Teams Associate Entertainment Editor Relationship Specialty Start Date End Date Markie Tolbert MD [address] [place] [address], [address] [place] [address] PCP - General Pediatrics 04/09/17 documented as of this encounter
--- OUTSIDE RECORDS SUMMARY | 2025-05-30 09:26 | XMS_ITS | Encounter Summary ---
Author Organization [facility] tem Address [id number] [address] [place] [address] Care Team Providers Care Commercial Loan Specialist Name Role Phone Markie Tolbert MD Primary Care Provider [phone] Encounter Details Date Type Department Care Team (Latest Contact Info) Description 05/24/2025 Travel Social History Tobacco Use Types Packs/Day [...] week 06/05/2021 How often do you attend [facility] or caodaism services? 1 to 4 times per year 06/05/2021 Do you belong to any clubs o r organizations such as jewish groups, unions, fraternal or athletic groups, or [...] Answer Date Recorded Total Score 8 05/24/2025 [facility] of Occupat ional [facility] - Occupational Stress Questionnaire Answer Date [...] Recorded Do you need help finding a [facility] and/or a training program? No [...] Description 06/01/2025 1:15 PM EDT Office Visit [facility] - [facility] Management [facility] [address] [place] [phone] Lexie Aviles PAZhannaC [address] [facility], [address]nd [place] [address] documented as of this encounter Visit Diagnoses Not on filedocumented in this encounter Additional Health Concerns Assessment Noted Time PHQ-9 Depression Total Score: 8 05/24/20 25 11:04 AM EDT documented as of this encounter Care Teams Commercial Loan Specialist Relationship Specialty Start Date End Date Markie Tolbert MD [address] [place] [address], [address] [place] [address] PCP - General Pediatrics 04/09/17 documented as of this encounter
--- OUTSIDE RECORDS SUMMARY | 2025-05-30 09:26 | XMS_ITS | Encounter Summary ---
Author Organization [employer] tem Address [id number] [address] [place] [address] Care Team Providers Care Mammal Keeper Name Role Phone Markie Tolbert MD Primary Care Provider [phone] Reason for Visit * Reason Comments Med Refill Encounter Details Date Type Department Care Team (Late st Contact Info) Description 04/28/2024 Refill [facility] Internal Medicine/Pediatrics [address] [place] [phone] Markie Tolbert MD [address] [place] [address], [address] [place] [address] Lumbar paraspinal muscle spasm Social History Tobacco Use Types Packs/Day Years Used Date Smoking Tobacco: Never Smokeless Tobacco: Never Alcohol Use Standard Drinks/Week Comments No 0 (1 standard drink = 0.6 oz pur e alcohol) Social Connection and Isolation Panel [NHANES] A nswer Date Recorded In a typical week, how many times do you talk on the phone with family, friends, or neighbors? Three times a week 06/05/20 How often do you get togethe r with friends or relatives? Once a week 06/05/2021 How often do you attend chur ch or judaism services? 1 to 4 times per year 06/05/2021 Do you belong to any clubs o r organizations such as rastafari groups, unions, fraternal or athletic groups, or [...] 03/13/2024 PHQ-2 Answer Date Recorded Total Score 0 06/05/2021 [facility] of Occupat ional Health - Occupational Stress [...] Recorded Do you need help finding a [facility] career center and/or a training program? No 06/05/2021 Hunger Screening Answer Date Recorded Within the past 12 months we worried whether our food would run out before we got money to buy more. Never True 03/13/2024 Within the past 12 months th e food we bought just didn't last and we didn't have money to get more. Never True 03/13/2024 Purpose - Life Answer Date Recorded I [...] PM EST documented as of this encounter Miscellaneous Notes * Telephone Encounter - Eve Garg CMA - 04/28/2024 9:23 AM EDT Patient no longer on this medication documented in this encounter Plan of Treatment Upcoming Encounters Date Type Department Care Team (Late st Contact Info) Description 06/01/2025 1:15 PM EDT Office Visit [facility] - Pain Management Clinic [address] [place] [address] Lexie Aviles, PA-C [address], [address] [place], [place] [phone] documented as of this encounter Visit Diagnoses Diagnosis Lumbar paraspinal muscle spasm Other symptoms referable to back documented in this encounter Additional Health Concerns Assessment Noted Time PHQ-9 Depression Total Score: 0 06/05/20 21 12:17 PM EDT documented as of this encounter Care Teams Mammal Keeper Relationship Specialty Start Date End Date Markie Tolbert MD [address] [place] [address], [address] [place] [address] PCP - General Pediatrics 04/09/17 documented as of this encounter
--- OUTSIDE RECORDS SUMMARY | 2025-05-30 09:26 | XMS_ITS | Clinical Summary ---
Author Organization [employer] tem Address [id number] [address] [place] [address] Care Team Providers Care Aviation Engineer Name Role Phone Markie Tolbert MD Primary Care Provider [phone] Allergies Active Allergy Reactions Criticality Noted Date Comments Amoxicillin Hives Low 12/21/2018 Penicillin G 11/20/2023 Medications ibuprofen (ADVIL,MOTRIN) 200 mg tablet Take 4 tablets (800 mg total) by mouth every 6 (six) hours as needed for pain. Active acetaminophen (TYLENOL) 500 mg tablet Take 2 tablets (1,000 mg total) by mouth every 6 (six) hours as needed for pain. Active PREMARIN 0.625 mg tablet Take 1 tablet (0.625 mg total) by mouth in the morning. 12/08/19 23 Active LORazepam (ATIVAN) 1 mg tabletIndications :Anxiety Take 1 tablet (1 mg total) by mouth 2 (two) times a day as needed for anxiety. 6 tablet 11/29/19 25 Active ondansetron ODT (ZOFRAN ODT) 4 mg disintegrating tablet Dissolve 1 tablet (4 mg total) on tongue every 8 (eight) hours as needed for nausea or vomiting. 10 tablet 11/29/19 25 Active scopolamine (TRANSDERM-SCOP) 1 mg/[address] 1 patch on the skin every third day. 4 patch 1 11/29/19 25 2024 Discontinued gabapentin (NEURONTIN) 100 mg capsuleIndication s:Spinal stenosis of lumbar region with neurogenic claudication Take 1 capsule (100 mg total) by mouth See Admin Instructions. Take 1 tablet by mouth at bedtime for 3 nights, then take 1 tablet by mouth twice daily for 3 days, then take 1 tablet by mouth three times daily thereafter 81 capsule 04/27/20 25 2024 Discontinued Active Problems Problem Noted Date Diagnosed Date Lumbar disc displacement without myelopathy 07/2025 Spinal stenosis of lumbar re gion with neurogenic claudication 02/16/2025 Lumbar spondylosis 11/17/2024 Cervical spondylosis without myelopathy 12/21/19 19 Resolved Problems Problem Noted Date Diagnosed Date Resolved Date Vaginal odor 11/08/2020 10/16/2023 Encounters Date Type Department Care Team Description 05/30/2025 Travel 05/24/2025 11:00 AM EDT Office Visit [facility] Internal Medicine/Pediatric s [address] [place] [address] Markie Tolbert MD Grief reaction (Primary Dx) 05/24/2025 Travel 04/27/2025 2:45 PM EDT Office Visit [facility] [address] [place] [address] Lexie Aviles, MIKE Lumbar spondylosis (Primary Dx); Spinal stenosis of lumbar region with neurogenic claudication 04/25/2025 Travel 04/08/2025 2:49 PM EDT - 04/08/2025 2:57 PM EDT Surgery [facility] - [facility] Procedures [address] [place] [phone] Xavi Camilo MD INJECTION SPINE TRANSFORAMINAL Right L 1,2 NRoot [07444 (CPT )] 04/08/2025 1:43 PM EDT - 04/08/2025 11:59 PM EDT Hospital Encounter [facility] Procedures [address] [place] [address] Xavi Camilo MD Discharge Disposition: Home 04/08/2025 9:00 AM EDT - 04/08/2025 1:42 PM EDT Hospital Encounter [facility] - Radiology [address] [place] [address] Xavi Camilo MD Spinal stenosis of lumbar region with neurogenic claudication; Lumbar disc displacement without myelopathy Discharge Disposition: Home 04/08/2025 Travel 03/31/2025 3:50 PM EDT - 03/31/2025 11:59 PM EDT Hospital Encounter [facility] - [facility]iology [address] [place] [address] Lexie Aviles PA-C Right hip pain Discharge Disposition: Home 03/30/2025 2:45 PM EDT Office Visit [facility] [address] [place] [address] Lexie Aviles PA-C Spinal stenosis of lumbar region with neurogenic claudication (Primary Dx); Right hip pain 03/29/2025 Travel 03/04/2025 10:58 AM EDT - 03/04/2025 11:05 AM EDT Surgery [facility] - Pain Procedures [address] [facility] [place] [address] Xavi Camilo MD INJECTION BLOCK EPIDURAL STEROID LUMBAR/SACRAL L 1/2 HARDIK [46828 (CPT )] 03/04/2025 9:53 AM EDT - 03/04/2025 11:59 PM EDT Hospital Encounter [facility] - Pain Procedures [address] [place] [address] Xavi Camilo MD Discharge Disposition: Home 03/04/2025 9:15 AM EDT - 03/04/2025 9:52 AM EDT Hospital Encounter [facility] - Radiology [address] [place] [address] Xavi Camilo MD Spinal stenosis of lumbar region with neurogenic claudication; Lumbar disc displacement without myelopathy Discharge Disposition: Home 03/02/2025 Travel from Last 3 Months Immunizations Immunization Administration Dates Next Due COVID-19, mRNA, LNP-S, PF, 100mcg/0.5mL Dose ,01/31/2021 Influenza, Unspecified 07/23/2020 Family History Medical History Relation Name Comments Cancer Father dad Coronary artery disease Father dad Heart disease Father dad Hypertension Father dad Prostate cancer Father dad Breast cancer Maternal Aunt Mom sister Cancer Mother mom stomach Coronary artery disease Mother mom Diabetes Mother mom Heart disease Mother mom Cancer Paternal Aunt fathers aunt uterine Ovarian cancer Paternal Aunt fathers aunt Relation Name Status Comments Father dad Alive Maternal Aunt Mom sister Mother mom Alive Paternal Aunt fathers aunt Social History Tobacco Use Types Packs/Day Years Used Date Smoking Tobacco: Never Smokeless Tobacco: Never Tobacco Cessation:Counseling Given: Not Answered Alcohol Use Standard Drinks/Week Comments Yes 0 [...] 06/05/2021 How often do you attend chur or anglican services? 1 to 4 times per year 06/05/2021 Do you belong to any clubs o r organizations such as nondenominational groups, unions, fraternal or athletic groups, or [...] Answer Date Recorded Total Score 8 05/24/2025 [facility] of Occupat ional Health - Occupational Stress [...] Recorded Do you need help finding a [facility] and/or a training program? [...] Orientation Straight 01/15/2020 6: 41 PM EST Last Filed Vital Signs Vital Sign Reading Time Taken Comments Blood Pressure 128/84 05/24/2025 11:07 AM EDT Pulse 72 05/24/2025 11:07 AM EDT Temperature 36.7 C (98 F) 05/24/2025 11:07 AM EDT Respiratory Rate 18 04/27/2025 2:48 PM EDT Oxygen Saturation 98% 05/24/2025 11: 07 AM EDT Inhaled Oxygen Concentration - - Weight 62.5 kg (137 lb 12.8 oz) 025 11:07 AM EDT Height 152.4 cm (5') 05/24/2025 11:07 AM EDT Body Mass Index 26.91 05/24/2025 11:07 AM EDT Plan of Treatment Upcoming Encounters Date Type Department Care Team (Late st Contact Info) Description 06/01/2025 1:15 PM EDT Office Visit [facility] [address] [place] [phone] Lexie Aviles, PAZhannaC [address], [address] [place] [address] Health Maintenance Due Date Last Done Comments Adult BMI Follow Up Plan 1995 DTaP,Tdap and Td Vaccines (1 - Tdap) 1996 Mammogram 03/15/2021 03/15/2020, 03/15/2020 COVID-19 Vaccine (3 - 2023-2 5 season) 2024 02/28/2021, 01/31/2021 Influenza Vaccine 07/11/2025 07/24/2023, , 08/30/2021, Additional history exists Adult BMI Screening 05/24/2026 05/24/2025 Depression Screening 05/24/2026 05/24/2025 Tobacco Screening 05/24/2026 05/24/2025 Pap Smear Discontinued 12/01/2024, 11/24/2023 Medical Devices Not on file Procedures Procedure Name Priority Date/Time Associated Diagnosis Comments FL FLUOROSCOPY UP TO 1 HOUR Routine 04/08/2025 2:18 PM EDT Spinal stenosis of lumbar region with neurogenic claudication Lumbar disc displacement without myelopathy MT INJECT ANES/STEROID FORAMEN LUMBAR/SACRAL W IMG GUIDE ,1 LEVEL 04/08/2025 2:11 PM EDT Spinal stenosis of lumbar region with neurogenic claudication XR HIP RT 2-3 VIEWS W OR WO PELVIS Routine 03/31/2025 4:03 PM EDT Right hip pain FL FLUOROSCOPY UP TO 1 HOUR Routine 03/04/2025 11:12 AM EDT Spinal stenosis of lumbar region with neurogenic claudication Lumbar disc displacement without myelopathy MT NJX DX/THER SBST INTRLMNR LMBR/SAC W/IMG GDN 03/04/2025 11:05 AM EDT Spinal stenosis of lumbar region with neurogenic claudication HM MAMMOGRAPHY Routine 03/15/2020 from Last 3 Months or Most Recently Relevant to Health Maintenance Results * Fluoroscopy less than one hour (04/08/2025 2:18 PM EDT) Only the most recent of2 resultswithin the time period is included. Narrative SYSTEMGENERATED, DOCUMENTATION - 04/08/2025 2:19 PM EDT No Reading Required. This procedure does not require a formal dictation. Non-Radiologist provider performed procedures can be reviewed under Post-Op, Procedure or Progress notes. For full report details, please reach out to your physician. Effective 03/27/2021 this image will be visible to you in MyChart. us Xavi Camilo MD IMG FLUOROSCOPY ORDERABLES Fi nal Result * X-ray hip right 2-3 views with or without pelvis (03/31/2025 4:03 PM EDT) Anatomical Region Laterality Modality Lower Extremities, MSK, Hip Right Comp uted Radiography 04/04/2025 11:0 0 PM EDT Narrative 04/04/2025 11:00 PM EDT XR HIP RT 2-3 VIEWS W OR WO PELVIS INDICATION: Right hip pain. FINDINGS: No displaced pelvic fracture. Satisfactory alignment of the right hip joint. No fracture. No dislocation. Joint spaces well-preserved. IMPRESSION: 1. No acute findings. Finalized by Giorgio Rodriguez MD on 04/04/2025 11:00 PM Procedure Note Giorgio Rodriguez MD - 04/04/2025 XR HIP RT 2-3 VIEWS W OR WO PELVIS INDICATION: Right hip pain. FINDINGS: No displaced pelvic fracture. Satisfactory alignment of the right hip joint. No fracture. Nodislocation. Joint spaces well-preserved. IMPRESSION: 1. No acute findings. Finalized by Giorgio Rodriguez MD on 04/04/2025 11:00 PM Lexie Aviles PA-C IMG DIAGNOSTIC IMAGING [facility] Final Result * MAMMOGRAPHY (03/15/2020) Mammogram Francoise More, LOOPING INSPECTOR wnl MANUALLY TRANSCRIBED RESULTS Anatomical Region Laterality Modality Other Markie Tolbert MD HEALTH MAINTENANCE Final Resu lt from Last 3 Months or Most Recently Relevant to Health Maintenance Insurance [employer] Care Teams Aviation Engineer Relationship Specialty Start Date End Date Markie Tolbert MD [address] [place] [address], [address] [place] [address] PCP - General Pediatrics 04/09/17
--- OUTSIDE RECORDS SUMMARY | 2025-05-30 09:26 | XMS_ITS | Encounter Summary ---
Author Organization [facility] [employer] tem Address [id number] [address] [place] [address] Care Team Providers Care Utility Spray Operator Name Role Phone Markie Tolbert MD Primary Care Provider [phone] Encounter Details Date Type Department Care Team (Late st Contact Info) Description 08/05/2024 Telephone [facility] Internal Medicine/Pediatrics [address] [place] [phone] Markie Tolbert MD [address] [place] [address], [address] [place] [address] Social History Tobacco Use Types Packs/Day Years [...] often do you attend chur ch or spiritism services? 1 to 4 times per year 06/05/2021 Do you belong to any clubs o r organizations such as jain groups, unions, fraternal or athletic groups, or [...] Answer Date Recorded Total Score 0 06/05/2021 [facility] of Occupat ional [facility] - Occupational Stress Questionnaire Answer Date [...] Recorded Do you need help finding a [facility] and/or a training program? [...] encounter Miscellaneous Notes * Telephone Encounter - Kellie Jacqui - 08/05/2024 2:07 PM EDT FYI: Lucila called and is having the same pain in her low back that she had in Oct and she never had the xray done, so she is going to go to the hospital and get that xray done. documented in this encounter Plan of Treatment Upcoming Encounters Date Type Department Care Team (Late st Contact Info) Description 06/01/2025 1:15 PM EDT Office Visit [facility] - Pain Management Clinic [address] [place] [phone] Lexie Aviles PA-C [address] [place], [place] [phone] documented as of this encounter Visit Diagnoses Not on filedocumented in this encounter Additional Health Concerns Assessment Noted Time PHQ-9 Depression Total Score: 0 06/05/20 21 12:17 PM EDT documented as of this encounter Care Teams Utility Spray Operator Relationship Specialty Start Date End Date Markie Tolbert MD [address] [place] [address], [address] [place], [place] [phone] PCP - General Pediatrics 04/09/17 documented as of this encounter
--- OUTSIDE RECORDS SUMMARY | 2025-05-30 09:26 | XMS_ITS | Encounter Summary ---
Author Organization [facility] Address [id number] [address] [place] [address] Care Team Providers Care Pilot Boat Operator Name Role Phone Markie Tolbert MD Primary Care Provider [phone] Encounter Details Date Type Department Care Team (Late st Contact Info) Description 11/13/2020 Telephone [facility] Obstetrics/Gynecology [address] [place] [phone] Zeinab Mancilla MA Social History Tobacco Use Types Packs/Day Years Used Date Smoking Tobacco: Never Smokeless Tobacco: Never Alcohol Use Standard Drinks/Week Comments No 0 (1 standard drink = 0.6 oz pur e alcohol) AUDIT-C Answer Date Recorded Frequency of Alcohol Consumption Never 12/21/2018 Average Number of Drinks Not on file 019 Frequency of Binge Drinking Not on file 12/11 Childcare Answer Date Recorded Childcare Unknown 04/21/2019 Employment Answer Date Recorded Employment Unknown 04/21/2019 Comments No Sex and Gender Information Value Date Recorded Sex Assigned at Female 09/07/2018 4:51 PM EDT Legal Sex Female 11:36 AM EDT Gender Identity Female 09/07/2018 4:51 PM EDT Sexual Orientation Straight 01/15/2020 6: 41 PM EST COVID-19 Exposure Response Date Recorded In the last month, have you been in contact with someone who was confirmed or suspected to have Coronavirus / COVID-19? No / Unsure 11/08/2020 8:41 AM EST documented as of this encounter Miscellaneous Notes * Telephone Encounter - Zeinab Mancilla MA - 11/13/2020 9:05 AM EST Patient called and tried taking flagyl bu stated it left a metal taste and she couldn't take them. She would like to try the cream instead of flagyl. Could you please send to pharmacy? Thanks Zeinab Mancilla MA 11/13/20 0909 * Telephone Encounter - Zeinab Mancilla MA - 11/13/2020 9:05 AM EST Called patient to let her know new med was sent to pharmacy. Left vmg per patient ok to leave vm documented in this encounter Plan of Treatment Upcoming Encounters Date Type Department Care Team (Late st Contact Info) Description 06/01/2025 1:15 PM EDT Office Visit [facility] - Pain Management Clinic [address] [place] [address] Lexie Aviles, PAZhannaC [address] [place] [address] documented as of this encounter Visit Diagnoses Not on filedocumented in this encounter Care Teams Pilot Boat Operator Relationship Specialty Start Date End Date Markie Tolbert MD [address] [place] [address], [address] [place], [place] [id number] PCP - General Pediatrics 04/09/17 documented as of this encounter
== END 2025-05-30 09:24 | disposition home or self-care (01) ==
LOC: MAMMO 09:23
PROVIDERS: Visit Provider Obstetrics & Gynecology
DX: Z12.31 Encounter for screening mammogram for malignant neoplasm of breast (principal); Z80.0 Family history of malignant neoplasm of digestive organs; Z80.42 Family history of malignant neoplasm of prostate
CPT/HCPCS: 77063; 77067